=== PATIENT | female | born 1970 | race Caucasian/White ===

== ENCOUNTER 2022-03-08 04:38 | Emergency (ER) | payer BC ==
[~2022-03-08] VITALS: Ht 162.6 cm; Wt 75.0 kg
[~2022-03-08 04:38] MED LIST: CHOL50006 PO; CYAN500T71 PO; LOSA50TA3 PO; METF-900 PO
[2022-03-08] MEDS ORDERED: ketorolac trometh inj. 60 MG/2 ML VIAL IM ONE (05:05)
[2022-03-08] MEDS ORDERED: diazepam 5mg tablet PO ONE (05:05)
[2022-03-08] MEDS ORDERED: HYDROcodone/acetaminophen 10/325mg tab PO ONE (05:35)
[2022-03-08] MEDS ORDERED: HYDR-3686 PO (06:39)
[2022-03-08 06:40] VITALS: BP 165/80
== END 2022-03-08 06:42 | disposition home or self-care (01) ==
LOC: ER 04:39
DX: M54.32 Sciatica, left side (principal)
CPT/HCPCS: 96372; 99283; J1885

== ENCOUNTER 2022-03-12 14:54 | Emergency (ER) | payer BC ==
[~2022-03-12] VITALS: Ht 162.6 cm; Wt 72.7 kg
[~2022-03-12 14:54] MED LIST changes: +HYDR-3686 PO
[2022-03-12 15:39] LABS: CLARITY,URINE CLEAR (Clear); COLOR,URINE YELLOW (Yellow); GLUCOSE, URINE 100 mg/dl (Neg); KETONES,URINE NEGATIVE (Neg); LEUKOCYTE ESTERASE ,URINE NEGATIVE (Neg); NITRITES, URINE NEGATIVE (Neg); OCCULT BLOOD,URINE NEGATIVE (Neg); PROTEIN,URINE NEGATIVE (Neg); UROBILINOGEN,URINE 0.2 E.U/dL (0.2-1.0)
[2022-03-12 15:40] LABS: ALANINE AMINOTRANSFERASE 16 U/L (12-78); ALBUMIN 4.1 G/DL (3.4-5.0); ALBUMIN/GLOBULIN RATIO 1.1 (1.1-1.5); ALKALINE PHOSPHATASE 76 IU/L (46-116); ANION GAP 9 (8-16); ASPARTATE AMINO TRANSFERASE 13 U/L (10-37); BILIRUBIN,TOTAL 0.5 MG/DL (0.1-1.0); BLOOD UREA NITROGEN 23 MG/DL (7-18); CALCIUM 9.7 MG/DL (8.5-10.1); CHLORIDE 102 MMOL/L (99-107); CREATININE 1.15 MG/DL (0.40-0.90); GLUCOSE 266 MG/DL (70-104); LIPASE 57 U/L (73-393); POTASSIUM 4.3 MMOL/L (3.5-5.1); SODIUM 138 MMOL/L (135-145); TOTAL CARBON DIOXIDE 27.2 MMOL/L (24-32); TOTAL PROTEIN 7.9 G/DL (6.4-8.2); eGFR 50 ML/MIN
[2022-03-12 15:41] LABS: URINE HCG NEGATIVE (NEG)
[2022-03-12 15:41] LABS: BASOPHILS # (AUTO) 0.1 X10'3 (0-0.2); BASOPHILS % (AUTO) 0.8 % (0-1); EOSINOPHILS # (AUTO) 0.1 X10'3 (0-0.9); EOSINOPHILS % (AUTO) 0.8 % (0-6); HEMATOCRIT 41.5 % (35.0-45.0); HEMOGLOBIN 14.4 g/dl (12.0-16.0); LYMPHOCYTES # (AUTO) 1.6 X10'3 (1.1-4.8); LYMPHOCYTES % (AUTO) 20.9 % (21-51); MEAN CORPUSCULAR HEMOGLOBIN 30.8 PG (27.0-31.0); MEAN CORPUSCULAR HGB CONC 34.6 g/dL (33.0-36.5); MEAN CORPUSCULAR VOLUME 89.1 FL (78-98); MEAN PLATELET VOLUME 7.9 FL (7.4-10.4); MONOCYTES # (AUTO) 0.6 X10'3 (0-0.9); MONOCYTES % (AUTO) 8.5 % (2-12); NEUTROPHILS # (AUTO) 5.1 X10'3 (1.8-7.7); PLATELET COUNT 361 X10'3 (140-440); RED BLOOD COUNT 4.66 X10'6 (4.20-5.60); RED CELL DISTRIBUTION WIDTH 12.6 % (11.5-14.5); WHITE BLOOD COUNT 7.5 X10'3 (4.5-11.0)
[2022-03-12 15:44] LABS: UA COLLECTION TYPE CLN CATCH MIDSTREAM
[2022-03-12 16:24] VITALS: BP 161/108
[2022-03-12] MEDS ORDERED: TRAM50TA2 PO (16:58)
[2022-03-12] MEDS ORDERED: ONDA4TAB12 PO (16:58)
[2022-03-12] MEDS ORDERED: HYDR-3964 PO (16:58)
== END 2022-03-12 17:36 | disposition home or self-care (01) ==
LOC: ER 14:54
DX: S39.012A Strain of muscle, fascia and tendon of lower back, initial encounter (principal); N20.0 Calculus of kidney; G89.29 Other chronic pain; E87.6 Hypokalemia; E11.65 Type 2 diabetes mellitus with hyperglycemia; X58.XXXA Exposure to other specified factors, initial encounter; Y93.89 Activity, other specified; Y92.89 Other specified places as the place of occurrence of the external cause; Y99.8 Other external cause status
CPT/HCPCS: 36415; 74176; 80053; 81003; 81025; 83690; 85025; 99284

== ENCOUNTER 2022-04-21 13:29 | Emergency (ER) | payer BC ==
[~2022-04-21] VITALS: Ht 162.6 cm; Wt 74.1 kg
[~2022-04-21 13:29] MED LIST changes: +ONDA4TAB12 PO
[2022-04-21 18:40] VITALS: BP 153/85
== END 2022-04-21 18:41 | disposition home or self-care (01) ==
LOC: ER 13:30
DX: R20.2 Paresthesia of skin (principal); E11.9 Type 2 diabetes mellitus without complications
CPT/HCPCS: 72148; 99284